=== PATIENT | male | born 1995 | race Hispanic/Latino ===

== ENCOUNTER 2018-04-16 13:24 | Emergency (ER) | payer SELFPAY ==
--- NOTE | 2018-04-16 14:06 | ER ---
Nurse's Notes [facility] Name: Jonathan Calvin Age: 23 yrs Sex: Male : 1995 Arrival Date: 04/16/2018 Time: 13:25 Bed 19 Private MD: Diagnosis: Claudio's palsy Presentation: 04/16 13:40 Presenting complaint: Patient states: 2 nights ago, i felt pain on the back of my neck hj and sharp pain on my L ear, L side of the lip and face is numbed; denies hx of [place] Palsy;. Transition of care: patient was not received from another setting of care. Onset of symptoms was April 14, 2018. Risk Assessment: Do you want to hurt yourself or someone else? Patient reports no desire to harm self or others. Initial Sepsis Screen: Does the patient meet any 2 criteria? No. Patient's initial sepsis screen is negative. Does the patient have a suspected source of infection? No. Patient's initial sepsis screen is negative. 13:40 Method Of Arrival: Ambulatory 13:40 Acuity: GINGER 4 13:44 Care prior to arrival: None. Triage Assessment: 13:43 Headache History: Denies prior headaches. General: Appears in no apparent distress. hj uncomfortable, Behavior is calm, cooperative, appropriate for age. Pain: Complains of pain in head Pain currently is 8 out of 10 on a pain scale. Pain began 2-3 days ago. Also complains of. Neuro: Level of Consciousness is awake, alert, obeys commands, Oriented to person, place, time, situation, Appropriate for age. Historical: - Allergies: 13:43 Sulfa; - Home Meds: 13:43 Claritin Oral [Active]; - PMHx: 13:43 None; - PSHx: 13:43 None; - Immunization history:: Adult Immunizations. - Social history:: Smoking status: Patient/guardian denies using tobacco, Patient/guardian denies using alcohol. - Ebola Screening: : Patient negative for fever greater than or equal to 101.5 degrees Fahrenheit, and additional compatible Ebola Virus Disease symptoms Patient denies exposure to infectious person Patient denies travel to an Ebola-affected area in the 21 days before illness onset. Screenin:44 Abuse screen: Denies threats or abuse. Nutritional screening: No deficits noted. hj Tuberculosis screening: No symptoms or risk factors identified. Fall Risk None identified. Assessment: 14:00 General: Appears in no apparent distress. comfortable, Behavior is calm, cooperative. em Pain: Complains of pain in left jaw and left eye and left cheek. Neuro: Level of Consciousness is awake, alert, obeys commands, Oriented to person, place, time, situation, Moves all extremities. Gait is steady, Speech is normal, Facial droop on left, Tingling in left jaw and left cheek. Cardiovascular: Denies chest pain, Capillary refill < 3 seconds Chest pain is denied. Respiratory: Airway is patent Respiratory effort is even, unlabored, Respiratory pattern is regular, symmetrical. GI: No signs and/or symptoms were reported involving the gastrointestinal system. : No signs and/or symptoms were reported regarding the genitourinary system. EENT: No signs and/or symptoms were reported regarding the EENT system. Derm: Skin is intact, Skin is pink, warm \T\ dry. Musculoskeletal: Range of motion: intact in all extremities. Vital Signs: 13:44 BP 145 / 85; Pulse 80; Resp 18; Temp 98.4(O); Pulse Ox 100% on R/A; Weight 88.45 kg; hj Height 5 ft. 9 in. (175.26 cm); Pain 8/10; 13:44 Body Mass Index 28.80 (88.45 kg, 175.26 cm) ED Course: 13:25 Patient arrived in ED. sb2 13:42 Triage completed. hj 13:44 Arm band placed on right wrist. 13:44 Patient has correct armband on for positive identification. Bed in low position. Call light in reach. Side rails up X 1. 13:47 Josue Zelaya PA is PHCP. [facility] 13:47 Jorge Velazquez MD is Attending Physician. [facility] 14:05 Lee Arellano MD is Referral Physician. [facility] 14:05 Ubaldo Titus MD is Referral Physician. [facility] 14:10 Александр Dueñas LVN is Primary Nurse. em 14:15 No provider procedures requiring assistance completed. Patient did not have IV access em during this emergency room visit. Administered Medications: No medications were administered Outcome: 14:05 Discharge ordered by . m 14:17 Discharged to home ambulatory. em 14:17 Condition: good 14:17 Discharge instructions given to patient, Instructed on discharge instructions, follow up and referral plans. medication usage, Demonstrated understanding of instructions, follow-up care, medications, Prescriptions given X 4. 14:18 Patient left the ED. em Signatures: Josue Zelaya PA PA jmm Munoz, Edgar, REPAIRER FINISHED METAL REPAIRER FINISHED METAL em Grzegorz Casiano, RN RN Marti Gross sb2
--- NOTE | 2018-04-16 14:06 | EDPHYS ---
Physician Documentation [facility] Name: Jonathan Calvin Age: 23 yrs Sex: Male : 1995 Arrival Date: 04/16/2018 Time: 13:25 Bed 19 Private MD: ED Physician Jorge Velazquez HPI: 04/16 13:58 This 23 yrs old Male presents to ER via Ambulatory with complaints of jmm Headache, Numbness Of Face - L. 13:58 The patient complains of pain to the left ear, left cheek, left eye and left jaw. The jmm patient describes the headache as aching. Onset: The symptoms/episode began/occurred gradually, 2 day(s) ago. This is a 23 year old male with no chronic medical conditions that presents to the ED with left sided facial pain and weakness. Patient also complains of ear pain. Patient denies difficulty walking.. Historical: - Allergies: 13:43 Sulfa; hj - Home Meds: 13:43 Claritin Oral [Active]; hj - PMHx: 13:43 None; hj - PSHx: 13:43 None; hj - Immunization history:: Adult Immunizations. - Social history:: Smoking status: Patient/guardian denies using tobacco, Patient/guardian denies using alcohol. - Ebola Screening: : Patient negative for fever greater than or equal to 101.5 degrees Fahrenheit, and additional compatible Ebola Virus Disease symptoms Patient denies exposure to infectious person Patient denies travel to an Ebola-affected area in the 21 days before illness onset. ROS: 13:58 Constitutional: Negative for fever, chills, and weight loss, Eyes: Negative for injury, jmm pain, redness, and discharge, Cardiovascular: Negative for chest pain, palpitations, and edema, Respiratory: Negative for shortness of breath, cough, wheezing, and pleuritic chest pain. 13:58 ENT: Positive for ear pain. 13:58 Neuro: Positive for facial droop. 13:58 All other systems are negative. Exam: 13:58 Chest/axilla: Normal chest wall appearance and motion. Cardiovascular: Regular rate jmm and rhythm. No edema appreciated Respiratory: Normal respirations, no respiratory distress appreciated Abdomen/GI: Non distended, soft 13:58 Constitutional: The patient appears in no acute distress, alert, awake. 13:58 Head/face: 13:58 Head/face: facial droop noted. 13:58 Eyes: Extraocular movements: intact throughout, Conjunctiva: normal. 13:58 ENT: TM's: are normal. 13:58 Neuro: Orientation: is normal, Mentation: is normal, Memory: is normal, Cerebellar function: normal finger to nose testing, heel to skinner testing is normal, left sided facial droop with eyebrow involvement appreciated. 13:58 Psych: Behavior/mood is pleasant, cooperative. Vital Signs: 13:44 BP 145 / 85; Pulse 80; Resp 18; Temp 98.4(O); Pulse Ox 100% on R/A; Weight 88.45 kg; hj Height 5 ft. 9 in. (175.26 cm); Pain 8/10; 13:44 Body Mass Index 28.80 (88.45 kg, 175.26 cm) hj MDM: 13:58 Patient medically screened. [facility] 14:03 Data reviewed: vital signs, nurses notes. Counseling: I had a detailed discussion with eduar the patient and/or guardian regarding: the historical points, exam findings, and any diagnostic results supporting the discharge/admit diagnosis, the presence of at least one elevated blood pressure reading (>120/80) during this emergency department visit, the need for outpatient follow up, to return to the emergency department if symptoms worsen or persist or if there are any questions or concerns that arise at home. ED course: Dr. Velazquez at bedside. PE findings consistent with bells palsy. I do not currently suspect cva. Patient will be given a course of antivirals, steroids. Patient will be given opthalmology and neurology follow up . . Administered Medications: No medications were administered Disposition: 17:33 Co-signature as Attending Physician, Jorge Velazquez MD Available for consultation at ps1 all times. . Disposition: 04/16/18 14:05 Discharged to Home. Impression: Claudio's palsy. - Condition is Stable. - Discharge Instructions: Claudio Palsy, Adult. - Prescriptions for Prednisone 20 mg Oral Tablet - take 3 tablets by ORAL route once daily for 5 days Please take 3 tabs by mouth daily for 3 days, then 2 tabs by mouth daily for 3 days, then 1 tab by mouth daily for 3 days, then 1/2 tab by mouth daily for 3 days; 20 tablet. Acyclovir 800 mg Oral Tablet - take 1 tablet by ORAL route 5 times per day for 10 days; 50 tablet. Erythromycin 5 mg/gram (0.5 %) Ophthalmic Ointment - apply 1 centimeter by OPHTHALMIC route 2-3 times daily for 7 days; 1 tube. Ultram 50 mg Oral Tablet - take 1 tablet by ORAL route every 6 hours As needed; 20 tablet. - Medication Reconciliation Form, Thank You Letter, Antibiotic Education, Prescription Opioid Use form. - Follow up: Lee Arellano MD; When: 2 - 3 days; Reason: Recheck today's complaints, Continuance of care, Re-evaluation by your physician. Follow up: Ubaldo Titus MD; When: 2 - 3 days; Reason: Recheck today's complaints, Continuance of care, Re-evaluation by your physician. Signatures: Josue Zelaya PA PA jmm Munoz, Edgar, FUNERAL CAR DRIVER FUNERAL CAR DRIVER Grzegorz Lyles RN RN Jorge Peres MD MD ps1 Corrections: (The following items were deleted from the chart) 14:18 14:05 04/16/2018 14:05 Discharged to Home. Impression: Claudio's palsy. Condition is em Stable. Forms are Medication Reconciliation Form, Thank You Letter, Antibiotic Education, Prescription Opioid Use. Follow up: Lee Arellano; When: 2 - 3 days; Reason: Recheck today's complaints, Continuance of care, Re-evaluation by your physician. Follow up: Ubaldo Titus; When: 2 - 3 days; Reason: Recheck today's complaints, Continuance of care, Re-evaluation by your physician. eduar
== END 2018-04-16 14:18 | disposition home or self-care (01) ==
LOC: ER 13:24
DX: G51.0 Bell's palsy (principal); Z88.2 Allergy status to sulfonamides
CPT/HCPCS: 99282

== ENCOUNTER 2019-03-14 09:06 | Emergency (ER) | payer SELFPAY ==
--- NOTE | 2019-03-14 11:10 | ER ---
Nurse's Notes [facility] Name: Jonathan Calvin Age: 24 yrs Sex: Male : 1995 Arrival Date: 03/14/2019 Time: 09:08 Bed 10 Private MD: Diagnosis: Fall;Left hip pain;Paraspinal spasm;Abrasion Presentation: 03/14 09:23 Presenting complaint: Patient states: "I was rushing down some stairs yesterday and I aa5 fell on my left side". Pt states "the left side hurts from my waist down". Pt denies LOC, denies head injury. Pt reports falling from approximately 4 steps. Transition of care: patient was not received from another setting of care. Onset of symptoms was March 13, 2019. Risk Assessment: Do you want to hurt yourself or someone else? Patient reports no desire to harm self or others. Initial Sepsis Screen: Does the patient meet any 2 criteria? No. Patient's initial sepsis screen is negative. Does the patient have a suspected source of infection? No. Patient's initial sepsis screen is negative. Care prior to arrival: None. 09:23 Method Of Arrival: Ambulatory aa5 09:23 Acuity: GINGER 4 aa5 Historical: - Allergies: 09:23 Sulfa; aa5 - PMHx: 09:23 None; aa5 - PSHx: 09:23 None; aa5 - Immunization history:: Adult Immunizations up to date. - Ebola Screening: : No symptoms or risks identified at this time. - Social history:: Smoking status: Patient/guardian denies using tobacco. Screenin:30 Abuse screen: Denies threats or abuse. Nutritional screening: No deficits noted. aa5 Tuberculosis screening: No symptoms or risk factors identified. Fall Risk None identified. Assessment: 09:30 General: Appears comfortable, Behavior is calm, cooperative. Pain: Complains of pain in aa5 left low back, left hip, left knee, left leg, and left ankle Quality of pain is described as aching, Is continuous, Aggravated by increased activity. Neuro: Level of Consciousness is awake, alert, obeys commands, Oriented to person, place, time, situation, Gait is steady. Cardiovascular: Capillary refill < 3 seconds is brisk in bilateral fingers Patient's skin is warm and dry. Respiratory: Airway is patent Respiratory effort is even, unlabored, Respiratory pattern is regular, symmetrical. GI: No signs and/or symptoms were reported involving the gastrointestinal system. : No signs and/or symptoms were reported regarding the genitourinary system. EENT: No signs and/or symptoms were reported regarding the EENT system. Derm: Skin is pink, warm \\T\\ dry. Musculoskeletal: Range of motion: intact in all extremities. 10:45 Reassessment: Patient is alert, oriented x 3, equal unlabored respirations, skin aa5 warm/dry/pink. Urine specimen collected, urine is yellow and clear. . 11:25 Reassessment: Patient is alert, oriented x 3, equal unlabored respirations, skin aa5 warm/dry/pink. Vital Signs: 09:25 BP 148 / 78; Pulse 66; Resp 16 S; Temp 98.6(TE); Pulse Ox 100% on R/A; Weight 88.45 kg aa5 (R); Height 5 ft. 9 in. (175.26 cm) (R); Pain 8/10; 09:25 Body Mass Index 28.80 (88.45 kg, 175.26 cm) aa5 ED Course: 09:08 Patient arrived in ED. rg4 09:12 Jorge Velazquez MD is Attending Physician. ps1 09:23 Arm band placed on. aa5 09:23 Patient has correct armband on for positive identification. aa5 09:25 Triage completed. aa5 09:26 Ann Marie Brambila RN is Primary Nurse. aa5 11:25 No provider procedures requiring assistance completed. Patient did not have IV access aa5 during this emergency room visit. Administered Medications: No medications were administered Outcome: 11:09 Discharge ordered by . ps1 11:25 Discharged to home ambulatory. aa5 11:25 Condition: stable 11:25 Discharge instructions given to patient, Instructed on discharge instructions, follow up and referral plans. medication usage, Demonstrated understanding of instructions, follow-up care, medications, Prescriptions given X 3. 11:27 Patient left the ED. aa5 Signatures: Ann Marie Brambila RN RN [email or web address] Marily Ko rg4 Jorge Velazquez MD MD ps1 Corrections: (The following items were deleted from the chart) 10:59 09:30 Neuro: Level of Consciousness is awake, alert, obeys commands, Oriented to aa5 person, place, time, situation, aa5
--- NOTE | 2019-03-14 11:10 | EDPHYS ---
Physician Documentation [facility] Name: Jonathan Calvin Age: 24 yrs Sex: Male : 1995 Arrival Date: 03/14/2019 Time: 09:08 Bed 10 Private MD: ED Physician Jorge Velazquez HPI: 03/14 10:49 This 24 yrs old Male presents to ER via Ambulatory with complaints of Fall ps1 Injury. 10:49 patient states that he fell from standing height while going down stairs. Did not fall ps1 down stairs. C/o pain to left hip. No obvious injury, has spasm to left paraspinal area. Patient is ambulatory. No hematuria. Took tylenol which helped. . Historical: - Allergies: 09:23 Sulfa; aa5 - PMHx: :23 None; aa5 - PSHx: :23 None; aa5 - Immunization history:: Adult Immunizations up to date. - Ebola Screening: : No symptoms or risks identified at this time. - Social history:: Smoking status: Patient/guardian denies using tobacco. ROS: 11:03 Constitutional: Negative for fever, chills, and weight loss, Eyes: Negative for injury, ps1 pain, redness, and discharge, Cardiovascular: Negative for chest pain, palpitations, and edema, Respiratory: Negative for shortness of breath, cough, wheezing, and pleuritic chest pain, Abdomen/GI: Negative for abdominal pain, nausea, vomiting, diarrhea, and constipation. 11:03 Back: Positive for flank pain, on the left. 11:03 Skin: Positive for abrasion(s), of the left leg. Exam: 11:03 Constitutional: This is a well developed, well nourished patient who is awake, alert, ps1 and in no acute distress. Head/Face: Normocephalic, atraumatic. Chest/axilla: Normal chest wall appearance and motion. Nontender with no deformity. No lesions are appreciated. Cardiovascular: Regular rate and rhythm. No gallops, murmurs, or rubs. Normal PMI, no JVD. No pulse deficits. Respiratory: Lungs have equal breath sounds bilaterally, clear to auscultation and percussion. No rales, rhonchi or wheezes noted. No increased work of breathing, no retractions or nasal flaring. Abdomen/GI: Soft, non-tender, with normal bowel sounds. No distension or tympany. No guarding or rebound. No evidence of tenderness throughout. MS/ Extremity: Pulses equal, no cyanosis. Neurovascular intact. Full, normal range of motion. Neuro: Awake and alert, GCS 15, oriented to person, place, time, and situation. Cranial nerves II-XII grossly intact. Sensory grossly intact. Psych: Awake, alert, with orientation to person, place and time. Behavior, mood, and affect are within normal limits. 11:03 Back: pain, that is mild, of the left low back. Vital Signs: 09:25 BP 148 / 78; Pulse 66; Resp 16 S; Temp 98.6(TE); Pulse Ox 100% on R/A; Weight 88.45 kg aa5 (R); Height 5 ft. 9 in. (175.26 cm) (R); Pain 8/10; 09:25 Body Mass Index 28.80 (88.45 kg, 175.26 cm) aa5 MDM: 10:44 Patient medically screened. ps1 11:03 Data reviewed: vital signs, nurses notes, lab test result(s), and as a result, I will ps1 discharge patient. ED course: patient is ambulatory. Has FROM. Mild paraspinal spasm. No hematuria 2/2 renal injury. Home with anaprox, medrol, robaxin. Precautions given. . 03/14 10:51 Order name: Urine Dipstick--Ancillary (enter results) ss 03/14 10:41 Order name: Urine Dipstick-Ancillary (obtain specimen); Complete Time: 10:49 ps1 Administered Medications: No medications were administered Disposition: 03/14/19 11:09 Discharged to Home. Impression: Fall, Left hip pain, Paraspinal spasm, Abrasion. - Condition is Stable. - Discharge Instructions: Muscle Cramps and Spasms. - Prescriptions for Anaprox DS 550 mg Oral Tablet - take 1 tablet by ORAL route every 12 hours As needed; 20 tablet. Robaxin 500 mg Oral Tablet - take 2 tablet by ORAL route every 6 hours As needed; 40 tablet. Medrol (Ashu) 4 mg Oral Tablets, Dose Pack - take 1 tablet by ORAL route as directed - follow package instructions; 1 packet. - Work release form, Medication Reconciliation Form, Thank You Letter, Antibiotic Education, Prescription Opioid Use form. - Follow up: Emergency Department; When: As needed; Reason: Worsening of condition. Follow up: Private Physician; When: As needed; Reason: Further diagnostic work-up, Recheck today's complaints, Continuance of care, Re-evaluation by your physician. - Problem is new. - Symptoms have improved. Signatures: Dispatcher [employer] EDAnn Marie Chambers RN RN aa5 Jorge Velazquez MD MD ps1 Corrections: (The following items were deleted from the chart) 10:55 10:49 patient states that he . ps1 ps1 11:05 10:49 patient states that he . ps1 ps1 11:27 11:09 03/14/2019 11:09 Discharged to Home. Impression: Fall; Left hip pain; Paraspinal aa5 spasm; Abrasion. Condition is Stable. Forms are Medication Reconciliation Form, Thank You Letter, Antibiotic Education, Prescription Opioid Use. Follow up: Emergency Department; When: As needed; Reason: Worsening of condition. Follow up: Private Physician; When: As needed; Reason: Further diagnostic work-up, Recheck today's complaints, Continuance of care, Re-evaluation by your physician. Problem is new. Symptoms have improved. ps1
[2019-03-14 11:49] LABS: Urine Blood NEGATIVE (NEG); Urine Glucose NEGATIVE (NEG); Urine Protein NEGATIVE (NEG); Urine Specific Gravity 1.015 (1.005-1.030); Urine pH 7.5 (5.0-7.0)
== END 2019-03-14 11:27 | disposition home or self-care (01) ==
LOC: ER 09:06
DX: M25.552 Pain in left hip (principal); M62.830 Muscle spasm of back; S80.812A Abrasion, left lower leg, initial encounter; W10.9XXA Fall (on) (from) unspecified stairs and steps, initial encounter; Z88.2 Allergy status to sulfonamides
CPT/HCPCS: 81003; 99282

== ENCOUNTER 2019-03-16 11:27 | Emergency (ER) | payer SELFPAY ==
--- NOTE | 2019-03-16 12:41 | RAD REPORT ---
EXAM DESCRIPTION: RAD - Pelvis - 03/16/2019 12:35 pm CLINICAL HISTORY: left hip pain, fall COMPARISON: No comparisons FINDINGS: No fracture, dislocation or radiographic evidence of AVN. IMPRESSION: Negative study.
--- NOTE | 2019-03-16 12:48 | RAD REPORT ---
EXAM DESCRIPTION: RAD - Lumbar Spine 3 Views - 03/16/2019 12:35 pm CLINICAL HISTORY: low back pain, fall Radiculopathy COMPARISON: No comparisons FINDINGS: Vertebral body heights appear maintained. No compression fracture noted. Disc spaces are m aintained. No spondylolysis or spondylolisthesis. IMPRESSION: Negative study.
--- NOTE | 2019-03-16 13:07 | ER ---
Nurse's Notes [facility] Name: Jonathan Calvin Age: 24 yrs Sex: Male : 1995 Arrival Date: 03/16/2019 Time: 11:30 Bed X-Ray Private MD: Diagnosis: Strain of muscle, fascia and tendon of lower back Presentation: 03/16 11:39 Presenting complaint: Patient states: Thursday i fell down and hit my L lower back and my hj L lower leg, came here for eval but no xray done, now the pain is pretty bad; pain is 8/10;. Transition of care: patient was not received from another setting of care. Onset of symptoms was March 16, 2019. Risk Assessment: Do you want to hurt yourself or someone else? Patient reports no desire to harm self or others. Initial Sepsis Screen: Does the patient meet any 2 criteria? No. Patient's initial sepsis screen is negative. Does the patient have a suspected source of infection? No. Patient's initial sepsis screen is negative. Care prior to arrival: None. 11:39 Method Of Arrival: Ambulatory 11:39 Acuity: GINGER 4 hj Triage Assessment: 11:39 General: Appears in no apparent distress. uncomfortable, Behavior is calm, cooperative, hj appropriate for age. Pain: Complains of pain in low back area. Musculoskeletal: Circulation, motion, and sensation intact. Historical: - Allergies: 11:41 Sulfa; hj - Home Meds: 11:41 Claritin Oral [Active]; hj - PMHx: 11:41 None; hj - PSHx: 11:41 None; hj - Immunization history:: Adult Immunizations up to date. - Social history:: Smoking status: Patient/guardian denies using tobacco, Patient/guardian denies using alcohol. - Ebola Screening: : Patient negative for fever greater than or equal to 101.5 degrees Fahrenheit, and additional compatible Ebola Virus Disease symptoms Patient denies exposure to infectious person Patient denies travel to an Ebola-affected area in the 21 days before illness onset. Screenin:39 Abuse screen: Denies threats or abuse. Denies injuries from another. Nutritional hj screening: No deficits noted. Tuberculosis screening: No symptoms or risk factors identified. Fall Risk None identified. Assessment: 11:39 General: Appears in no apparent distress. uncomfortable, Behavior is calm, cooperative, hj appropriate for age. Neuro: Level of Consciousness is awake, alert, obeys commands, Oriented to person, place, time, situation, Appropriate for age. Musculoskeletal: Reports pain in low back area. Vital Signs: 11:41 BP 155 / 81; Pulse 79; Resp 18; Temp 97.4(TE); Pulse Ox 100% on R/A; Weight 95.25 kg; hj Height 5 ft. 9 in. (175.26 cm); Pain 8/10; 13:18 BP 152 / 78; Pulse 75; Resp 18; Pulse Ox 100% on R/A; hj 11:41 Body Mass Index 31.01 (95.25 kg, 175.26 cm) hj ED Course: 11:30 Patient arrived in ED. mr 11:39 Patient has correct armband on for positive identification. Bed in low position. Call hj light in reach. 11:40 Triage completed. hj 11:42 Arm band placed on left wrist. 11:44 Josue Zealya PA is PHCP. [facility] 11:44 Ed Carney MD is Attending Physician. [facility] 11:57 Grzegorz Casiano, FER is Primary Nurse. hj 12:35 Lumbar Spine (3 Views) XRAY In Process Unspecified. EDMS 12:35 Pelvis XRAY In Process Unspecified. EDMS 13:18 No provider procedures requiring assistance completed. Patient did not have IV access hj during this emergency room visit. Administered Medications: No medications were administered Outcome: 13:07 Discharge ordered by . [facility] 13:18 Discharged to home ambulatory. hj 13:18 Condition: stable 13:18 Discharge instructions given to patient, Instructed on discharge instructions, follow up and referral plans. medication usage, Demonstrated understanding of instructions, follow-up care, medications, Prescriptions given X 1. 13:18 Patient left the ED. Signatures: Dispatcher [employer] EDMS Josue Zelaya PA PA jmm Rivera, Mary Grzegorz Casiano, RN RN
--- NOTE | 2019-03-16 13:08 | EDPHYS ---
Physician Documentation [facility] Name: Jonathan Calvin Age: 24 yrs Sex: Male : 1995 Arrival Date: 03/16/2019 Time: 11:30 Bed X-Ray Private MD: ED Physician Ed Carney HPI: 03/16 12:06 This 24 yrs old Male presents to ER via Ambulatory with complaints of Back jmm Pain. 12:06 The patient presents with pain that is acute. Onset: The symptoms/episode jmm began/occurred acutely, 3 day(s) ago. The pain does not radiate. Associated signs and symptoms: Pertinent negatives: fever, vomiting, weakness. This is a 24 year old male with no chronic medical conditions that presents to the ED with complaints of left sided back pain and ledt sided hip pain after a fall which occurred Thursday evening. Patient states she fell down the stairs. Denies head injury. Patient was evaluated in the ED after the injury. Patient states having continued pain and is unable to work due to pain. Patient denies weakness, bowel or bladder issues. . Historical: - Allergies: 11:41 Sulfa; hj - Home Meds: 11:41 Claritin Oral [Active]; hj - PMHx: 11:41 None; hj - PSHx: 11:41 None; hj - Immunization history:: Adult Immunizations up to date. - Social history:: Smoking status: Patient/guardian denies using tobacco, Patient/guardian denies using alcohol. - Ebola Screening: : Patient negative for fever greater than or equal to 101.5 degrees Fahrenheit, and additional compatible Ebola Virus Disease symptoms Patient denies exposure to infectious person Patient denies travel to an Ebola-affected area in the 21 days before illness onset. ROS: 12:06 Constitutional: Negative for fever, chills, and weight loss, Cardiovascular: Negative jmm for chest pain, palpitations, and edema, Respiratory: Negative for shortness of breath, cough, wheezing, and pleuritic chest pain. 12:06 Back: Positive for pain with movement. 12:06 MS/extremity: Positive for pain. 12:06 All other systems are negative. Exam: 12:06 Constitutional: This is a well developed, well nourished patient who is awake, alert, jmm and in no acute distress. Head/Face: atraumatic. Eyes: EOMI, no conjunctival erythema appreciated ENT: Moist Mucus Membranes Neck: Trachea midline, Supple Chest/axilla: Normal chest wall appearance and motion. Cardiovascular: Regular rate and rhythm. No edema appreciated Respiratory: Normal respirations, no respiratory distress appreciated Abdomen/GI: Non distended, soft 12:06 Back: mild midline lumbar tenderness, left paraspinal tenderness. 12:06 Musculoskeletal/extremity: ROM: intact in all extremities. 12:06 Skin: Appearance: Color: normal in color. 12:06 Neuro: Orientation: is normal, Mentation: is normal, Memory: is normal. 12:06 Neuro: Gait: is steady. 12:06 Psych: Behavior/mood is pleasant, cooperative. Vital Signs: 11:41 BP 155 / 81; Pulse 79; Resp 18; Temp 97.4(TE); Pulse Ox 100% on R/A; Weight 95.25 kg; hj Height 5 ft. 9 in. (175.26 cm); Pain 8/10; 13:18 BP 152 / 78; Pulse 75; Resp 18; Pulse Ox 100% on R/A; hj 11:41 Body Mass Index 31.01 (95.25 kg, 175.26 cm) MDM: 12:06 Patient medically screened. [facility] 13:06 Data reviewed: vital signs, nurses notes. Counseling: I had a detailed discussion with eduar the patient and/or guardian regarding: the historical points, exam findings, and any diagnostic results supporting the discharge/admit diagnosis, radiology results, the need for outpatient follow up, to return to the emergency department if symptoms worsen or persist or if there are any questions or concerns that arise at home. 03/16 12:12 Order name: Lumbar Spine (3 Views) XRAY; Complete Time: 12:52 [facility] 03/16 12:12 Order name: Pelvis XRAY; Complete Time: 12:45 [facility] Administered Medications: No medications were administered Disposition: 03/17 07:23 Co-signature as Attending Physician, Ed Carney MD I agree with the assessment and kdr plan of care. Disposition: 03/16/19 13:07 Discharged to Home. Impression: Strain of muscle, fascia and tendon of lower back. - Condition is Stable. - Discharge Instructions: Back Pain, Adult. - Prescriptions for Zanaflex 4 mg Oral Tablet - take 1 tablet by ORAL route every 8 hours As needed; 20 tablet. - Medication Reconciliation Form, Thank You Letter, Antibiotic Education, Prescription Opioid Use, Work release form form. - Follow up: Private Physician; When: 2 - 3 days; Reason: Recheck today's complaints, Continuance of care, Re-evaluation by your physician. Signatures: Dispatcher [employer] EDMS Ed Carney MD MD kdr Mickail, Joel, PA PA jmm Joaquin, Henry, RN RN hj Corrections: (The following items were deleted from the chart) 03/16 13:18 13:07 03/16/2019 13:07 Discharged to Home. Impression: Strain of muscle, fascia and hj tendon of lower back. Condition is Stable. Forms are Medication Reconciliation Form, Thank You Letter, Antibiotic Education, Prescription Opioid Use. Follow up: Private Physician; When: 2 - 3 days; Reason: Recheck today's complaints, Continuance of care, Re-evaluation by your physician. eduar
== END 2019-03-16 13:18 | disposition home or self-care (01) ==
LOC: ER 11:27
DX: S39.012A Strain of muscle, fascia and tendon of lower back, initial encounter (principal); Z88.2 Allergy status to sulfonamides
CPT/HCPCS: 72100; 72170; 99283

== ENCOUNTER 2019-10-26 08:01 | Emergency (ER) | payer SELFPAY ==
--- NOTE | 2019-10-26 09:11 | ER ---
Nurse's Notes [facility] Name: Jonathan Calvin Age: 24 yrs Sex: Male : 1995 Arrival Date: 10/26/2019 Time: 08:04 Bed 20 Private MD: Diagnosis: Acute pharyngitis Presentation: 10/26 08:15 Presenting complaint: Patient states: Sore throat x 3 days, fever this morning 102, jl7 took Tylenol at 0515. Transition of care: patient was not received from another setting of care. Onset of symptoms was October 23, 2019. Risk Assessment: Do you want to hurt yourself or someone else? Patient reports no desire to harm self or others. Initial Sepsis Screen: Does the patient meet any 2 criteria? No. Patient's initial sepsis screen is negative. Does the patient have a suspected source of infection? No. Patient's initial sepsis screen is negative. Care prior to arrival: Medication(s) given: Tylenol. 08:15 Method Of Arrival: Ambulatory [facility] 08:15 Acuity: GINGER 4 jl7 Triage Assessment: 08:18 General: Appears in no apparent distress. uncomfortable, Behavior is calm, cooperative, jl7 appropriate for age. Pain: Complains of pain in sore throat, ZHANG Pain currently is 9 out of 10 on a pain scale. EENT: Throat is pink has enlarged tonsils bilaterally. Neuro: Level of Consciousness is awake, alert, obeys commands, Oriented to person, place, time, situation. Cardiovascular: Patient's skin is warm and dry. Respiratory: Airway is patent Respiratory effort is even, unlabored, Respiratory pattern is regular, symmetrical. Derm: Skin is pink, warm \T\ dry. Historical: - Allergies: 08:18 Sulfa; jl7 - Home Meds: 08:18 None [Active]; jl7 - PMHx: 08:18 None; jl7 - PSHx: 08:18 None; jl7 - Immunization history:: Adult Immunizations up to date. - Coronavirus screen:: The patient has NOT traveled to [place] in the past 14 days. Proceed with normal triage process as indicated. - Social history:: Smoking status: Patient denies any tobacco usage or history of. - Ebola Screening: : No symptoms or risks identified at this time. Screenin:38 Abuse screen: Denies threats or abuse. Denies injuries from another. Nutritional jl7 screening: No deficits noted. Tuberculosis screening: No symptoms or risk factors identified. Fall Risk None identified. Assessment: 08:20 General: See triage assessment. jl7 Vital Signs: 08:18 BP 142 / 93; Pulse 77; Resp 17 S; Temp 97.9(O); Pulse Ox 97% on R/A; Weight 94.35 kg jl7 (R); Height 5 ft. 9 in. (175.26 cm) (R); Pain 9/10; 08:18 Body Mass Index 30.72 (94.35 kg, 175.26 cm) jl7 ED Course: 08:04 Patient arrived in ED. mr 08:06 [facility]ales [facility]C [facility] kb 08:06 Leodan Reyes MD is Attending Physician. kb 08:15 Balta Ferrara, FER is Primary Nurse. jl7 08:18 Triage completed. jl7 08:18 Arm band placed on right wrist. jl7 08:20 No provider procedures requiring assistance completed. Patient did not have IV access jl7 during this emergency room visit. 08:38 Patient has correct armband on for positive identification. Bed in low position. Call jl7 light in reach. Side rails up X 1. Pulse ox on. NIBP on. 08:38 Flu and/or RSV swab sent to lab. Strep swab sent to lab. jl7 Administered Medications: No medications were administered Outcome: 09:10 Discharge ordered by . kb 09:22 Discharged to home ambulatory. jl7 09:22 Condition: stable 09:22 Discharge instructions given to patient, Instructed on discharge instructions, follow up and referral plans. Demonstrated understanding of instructions, follow-up care. 09:23 Patient left the ED. jl7 Signatures: Anamaria Canales FNP-C FNP-Douglas Luly Calvert mr Balta Ferrara, RN RN jl7
--- NOTE | 2019-10-26 09:12 | EDPHYS ---
Physician Documentation [facility] Name: Jonathan Calvin Age: 24 yrs Sex: Male : 1995 Arrival Date: 10/26/2019 Time: 08:04 Bed 20 Private MD: ED Physician Leodan Reyes HPI: 10/26 08:54 This 24 yrs old Male presents to ER via Ambulatory with complaints of Fever, kb Sore Throat. 08:54 The patient presents with sore throat. The patient describes throat pain as constant. kb Onset: The symptoms/episode began/occurred 3 day(s) ago. Severity of symptoms: At their worst the symptoms were moderate, in the emergency department the symptoms are unchanged. Modifying factors: The symptoms are alleviated by nothing, the symptoms are aggravated by swallowing, Patient's oral intake status: good. Associated signs and symptoms: Pertinent positives: fever, rhinorrhea, Sore throat. The patient has not experienced similar symptoms in the past. The patient has not recently seen a physician. Pt reports sore throat for 3 days and fever that started this morning. Historical: - Allergies: 08:18 Sulfa; jl7 - Home Meds: 08:18 None [Active]; jl7 - PMHx: 08:18 None; jl7 - PSHx: 08:18 None; jl7 - Immunization history:: Adult Immunizations up to date. - Coronavirus screen:: The patient has NOT traveled to [place] in the past 14 days. Proceed with normal triage process as indicated. - Social history:: Smoking status: Patient denies any tobacco usage or history of. - Ebola Screening: : No symptoms or risks identified at this time. ROS: 08:53 Neck: Negative for injury, pain, and swelling, Cardiovascular: Negative for chest pain, kb palpitations, and edema, Respiratory: Negative for shortness of breath, cough, wheezing, and pleuritic chest pain, Abdomen/GI: Negative for abdominal pain, nausea, vomiting, diarrhea, and constipation, MS/Extremity: Negative for injury and deformity, Skin: Negative for injury, rash, and discoloration, Neuro: Negative for headache, weakness, numbness, tingling, and seizure. 08:53 Constitutional: Positive for fever, malaise. 08:53 ENT: Positive for rhinorrhea, sore throat. Exam: 08:53 Constitutional: This is a well developed, well nourished patient who is awake, alert, kb and in no acute distress. Head/Face: Normocephalic, atraumatic. ENT: Nares patent. No nasal discharge, no septal abnormalities noted. Tympanic membranes are normal and external auditory canals are clear. Oropharynx with no redness, swelling, or masses, exudates, or evidence of obstruction, uvula midline. Mucous membranes moist. Neck: Trachea midline, no thyromegaly or masses palpated, and no cervical lymphadenopathy. Supple, full range of motion without nuchal rigidity, or vertebral point tenderness. No Meningismus. Chest/axilla: Normal chest wall appearance and motion. Nontender with no deformity. No lesions are appreciated. Cardiovascular: Regular rate and rhythm with a normal S1 and S2. No gallops, murmurs, or rubs. Normal PMI, no JVD. No pulse deficits. Respiratory: Lungs have equal breath sounds bilaterally, clear to auscultation and percussion. No rales, rhonchi or wheezes noted. No increased work of breathing, no retractions or nasal flaring. Abdomen/GI: Soft, non-tender, with normal bowel sounds. No distension or tympany. No guarding or rebound. No evidence of tenderness throughout. Back: No spinal tenderness. No costovertebral tenderness. Full range of motion. Skin: Warm, dry with normal turgor. Normal color with no rashes, no lesions, and no evidence of cellulitis. MS/ Extremity: Pulses equal, no cyanosis. Neurovascular intact. Full, normal range of motion. Neuro: Awake and alert, GCS 15, oriented to person, place, time, and situation. Cranial nerves II-XII grossly intact. Motor strength 5/5 in all extremities. Sensory grossly intact. Cerebellar exam normal. Normal gait. Vital Signs: 08:18 BP 142 / 93; Pulse 77; Resp 17 S; Temp 97.9(O); Pulse Ox 97% on R/A; Weight 94.35 kg 7 (R); Height 5 ft. 9 in. (175.26 cm) (R); Pain 9/10; 08:18 Body Mass Index 30.72 (94.35 kg, 175.26 cm) 7 MDM: 08:08 Patient medically screened. kb 08:53 Differential diagnosis: flu pharyngitis, upper respiratory infection, viral syndrome. kb Data reviewed: vital signs, nurses notes, lab test result(s). Data interpreted: Pulse oximetry: on room air is 97 %. Interpretation: normal. Counseling: I had a detailed discussion with the patient and/or guardian regarding: the historical points, exam findings, and any diagnostic results supporting the discharge/admit diagnosis, lab results, the need for outpatient follow up, a family practitioner, to return to the emergency department if symptoms worsen or persist or if there are any questions or concerns that arise at home. 10/26 08:19 Order name: Flu; Complete Time: 09:06 kb 10/26 08:19 Order name: Strep kb 10/26 08:56 Order name: Group A Streptococcus Rapid Sc EDMS 10/26 09:18 Order name: Throat Culture EDMS Administered Medications: No medications were administered Disposition: 09:27 Co-signature as Attending Physician, Leodan Reyes MD. rn Disposition: 10/26/19 09:10 Discharged to Home. Impression: Acute pharyngitis. - Condition is Stable. - Discharge Instructions: Pharyngitis, [id number], Viral Respiratory Infection, [id number], Sore Throat, [id number]. - Medication Reconciliation Form, Thank You Letter, Antibiotic Education, Prescription Opioid Use, Work release form form. - Follow up: Emergency Department; When: As needed; Reason: Worsening of condition. Follow up: Private Physician; When: 2 - 3 days; Reason: Recheck today's complaints, Continuance of care, Re-evaluation by your physician. Signatures: Dispatcher [employer] EDNY Anamaria Canales, OFFICE PROFESSIONAL-C OFFICE PROFESSIONAL-Ckb Leodan Reyes MD MD rn Leal, Jahala, RN RN jl7 Corrections: (The following items were deleted from the chart) 09:23 09:10 10/26/2019 09:10 Discharged to Home. Impression: Acute pharyngitis. Condition is jl7 Stable. Forms are Medication Reconciliation Form, Thank You Letter, Antibiotic Education, Prescription Opioid Use. Follow up: Emergency Department; When: As needed; Reason: Worsening of condition. Follow up: Private Physician; When: 2 - 3 days; Reason: Recheck today's complaints, Continuance of care, Re-evaluation by your physician. kb
[2019-10-26 10:34] VITALS: BP 142/93; TEMP 97.9; O2SAT 97
== END 2019-10-26 09:23 | disposition home or self-care (01) ==
LOC: ER 08:01
DX: J02.9 Acute pharyngitis, unspecified (principal); Z88.2 Allergy status to sulfonamides
CPT/HCPCS: 87070; 87081; 87804; 99283

== ENCOUNTER 2021-02-18 00:40 | Emergency (ER) | payer SELFPAY ==
[2021-02-18 01:51] LABS: Protime INR 0.96
[2021-02-18 01:53] LABS: Absolute Lymphocytes (CBC) 3.3 K/uL (0.7-4.9); Basophils % 0.4 % (0-1.3); Hematocrit 43.1 % (39.6-49.0); Lymphocytes % 34.2 % (15.3-44.8); MPV 7.6 fL (7.6-11.3)
[2021-02-18 02:06] LABS: ALT/SGPT 52 U/L (12-78); AST/SGOT 28 U/L (15-37); Albumin 3.8 g/dL (3.4-5.0); Alkaline Phosphatase 94 U/L (45-117); BUN Blood Urea Nitrogen 12 mg/dL (7-18); Bicarbonate 28 mmol/L (21-32); Bilirubin Direct 0.1 mg/dL (0-0.2); Bilirubin Total 0.5 mg/dL (0.2-1.0); Glucose Level 90 mg/dL (74-106); Magnesium 2.3 mg/dL (1.8-2.4); NT PRO-BNP 43 pg/mL (<125); Potassium 3.7 mmol/L (3.5-5.1); Sodium Level 141 mmol/L (136-145); Troponin (Emerg Dept Use Only) < 0.02 ng/mL (0.0-0.045)
--- NOTE | 2021-02-18 02:10 | ER ---
Nurse's Notes [facility] Name: Jonathan Calvin Age: 25 yrs Sex: Male : 1995 Arrival Date: 02/18/2021 Time: 00:42 Bed 6 Private MD: Diagnosis: Anxiety disorder, unspecified Presentation: 02/18 01:20 Chief complaint: Patient states: I am thinking of something then I started to have left rr5 sided chest pain 35 minutes ago with light handedness and dizziness. Coronavirus screen: Client denies travel out of the [place] in the last 14 days. At this time, the client does not indicate any symptoms associated with coronavirus-19. Ebola Screen: Patient negative for fever greater than or equal to 101.5 degrees Fahrenheit, and additional compatible Ebola Virus Disease symptoms Patient denies exposure to infectious person. Patient denies travel to an Ebola-affected area in the 21 days before illness onset. Initial Sepsis Screen: Does the patient meet any 2 criteria? No. Patient's initial sepsis screen is negative. Does the patient have a suspected source of infection? No. Patient's initial sepsis screen is negative. Risk Assessment: Do you want to hurt yourself or someone else? Patient reports no desire to harm self or others. Onset of symptoms was February 18, 2021. 01:20 Method Of Arrival: Ambulatory rr5 01:20 Acuity: GINGER 3 rr5 Historical: - Allergies: 01:23 Sulfa; rr5 - Home Meds: 01:23 None [Active]; rr5 - PMHx: 01:23 staph infection; rr5 - PSHx: 01:23 None; rr5 - Immunization history:: Adult Immunizations up to date. - Social history:: Smoking status: unknown. - Family history:: not pertinent. Screenin:26 Abuse screen: Denies threats or abuse. Denies injuries from another. Nutritional rr5 screening: No deficits noted. Tuberculosis screening: No symptoms or risk factors identified. Fall Risk IV access (20 points). Total Mendoza Fall Scale indicates No Risk (0-24 pts). Assessment: 01:25 General: Appears in no apparent distress. uncomfortable, Behavior is calm, cooperative, rr5 appropriate for age, anxious. Pain: Complains of pain in anterior aspect of left upper chest Pain does not radiate. Pain currently is 6 out of 10 on a pain scale. Quality of pain is described as aching, Pain began suddenly, Is intermittent. Neuro: Level of Consciousness is awake, alert, obeys commands, Oriented to person, place, time, situation. Cardiovascular: Reports chest pain, Capillary refill < 3 seconds Patient's skin is warm and dry. Respiratory: Airway is patent Respiratory effort is even, unlabored, Respiratory pattern is regular, symmetrical. GI: No signs and/or symptoms were reported involving the gastrointestinal system. : No signs and/or symptoms were reported regarding the genitourinary system. EENT: No signs and/or symptoms were reported regarding the EENT system. Derm: Skin is intact, is healthy with good turgor, Skin temperature is warm. Musculoskeletal: Capillary refill < 3 seconds. 02:29 Reassessment: Patient and/or family updated on plan of care and expected duration. Pain ea level reassessed. Patient is alert, oriented x 3, equal unlabored respirations, skin warm/dry/pink. Discharge instruction given to patient verbalized the understanding of instruction. Vital Signs: 01:20 BP 151 / 99; Pulse 88; Resp 16; Temp 97.9; Pulse Ox 99% ; Weight 92.99 kg; Height 5 ft. rr5 9 in. (175.26 cm); Pain 6/10; 02:15 BP 140 / 86; Pulse 78; Resp 18; Pulse Ox 99% ; ea 01:20 Body Mass Index 30.27 (92.99 kg, 175.26 cm) rr5 ED Course: 00:42 Patient arrived in ED. es 01:15 Patient maintains SpO2 saturation greater than 95% on room air. ea 01:16 Arabella Muñoz MD is Attending Physician. ma2 01:20 Travis Mayberry, FER is Primary Nurse. rr5 01:20 Patient has correct armband on for positive identification. Bed in low position. Call rr5 light in reach. potline monitor on. Pulse ox on. NIBP on. 01:20 EKG done, by ED staff, reviewed by Arabella Muñoz MD. rr5 01:23 Triage completed. rr5 01:23 Arm band placed on right wrist. rr5 01:26 Inserted saline lock: 20 gauge in right antecubital area, using aseptic technique. rr5 Blood collected. 01:57 XRAY Chest (1 view) In Process Unspecified. EDMS 02:29 No provider procedures requiring assistance completed. IV discontinued, intact, ea bleeding controlled, No redness/swelling at site. Pressure dressing applied. Administered Medications: No medications were administered Outcome: 02:09 Discharge ordered by . esther 02:30 Discharged to home ambulatory. ea 02:30 Condition: stable 02:30 Discharge instructions given to patient, Instructed on discharge instructions, follow up and referral plans. Demonstrated understanding of instructions, follow-up care. 02:30 Patient left the ED. ea Signatures: Dispatcher [employer] EDTN Demetria Schaeffer Elena RN RN Arabella Bolton MD MD ma2 Roque, Raymond RN RN rr5
--- NOTE | 2021-02-18 02:10 | EDPHYS ---
Physician Documentation [facility] Name: Jonathan Calvin Age: 25 yrs Sex: Male : 1995 Arrival Date: 02/18/2021 Time: 00:42 Bed 6 Private MD: ED Physician Arabella Muñoz HPI: 02/18 02:07 This 25 yrs old Male presents to ER via Ambulatory with complaints of anxiety. ma2 02:07 Severity of pain: At its worst the pain was mild in the emergency department the pain ma2 is unchanged. The patient has not experienced similar symptoms in the past. had anxiety and chest pain that last for secods stapping, has no health issues, non smoker no family history of heart disease, . Historical: - Allergies: :23 Sulfa; rr5 - Home Meds: :23 None [Active]; rr5 - PMHx: :23 staph infection; rr5 - PSHx: 01:23 None; rr5 - Immunization history:: Adult Immunizations up to date. - Social history:: Smoking status: unknown. - Family history:: not pertinent. ROS: 02:07 Constitutional: Negative for fever, chills, and weight loss. ma2 02:07 All other systems are negative. Exam: 02:07 Constitutional: This is a well developed, well nourished patient who is awake, alert, ma2 and in no acute distress. Head/Face: Normocephalic, atraumatic. Eyes: Pupils equal round and reactive to light, extra-ocular motions intact. Lids and lashes normal. Conjunctiva and sclera are non-icteric and not injected. Cornea within normal limits. Periorbital areas with no swelling, redness, or edema. ENT: Nares patent. No nasal discharge, no septal abnormalities noted. Tympanic membranes are normal and external auditory canals are clear. Oropharynx with no redness, swelling, or masses, exudates, or evidence of obstruction, uvula midline. Mucous membranes moist. Neck: Trachea midline, no thyromegaly or masses palpated, and no cervical lymphadenopathy. Supple, full range of motion without nuchal rigidity, or vertebral point tenderness. No Meningismus. Chest/axilla: Normal chest wall appearance and motion. Nontender with no deformity. No lesions are appreciated. Cardiovascular: Regular rate and rhythm with a normal S1 and S2. No gallops, murmurs, or rubs. Normal PMI, no JVD. No pulse deficits. Respiratory: Lungs have equal breath sounds bilaterally, clear to auscultation and percussion. No rales, rhonchi or wheezes noted. No increased work of breathing, no retractions or nasal flaring. Abdomen/GI: Soft, non-tender, with normal bowel sounds. No distension or tympany. No guarding or rebound. No evidence of tenderness throughout. MS/ Extremity: Pulses equal, no cyanosis. Neurovascular intact. Full, normal range of motion. Neuro: Awake and alert, GCS 15, oriented to person, place, time, and situation. Cranial nerves II-XII grossly intact. Motor strength 5/5 in all extremities. Sensory grossly intact. Cerebellar exam normal. Normal gait. Vital Signs: 01:20 BP 151 / 99; Pulse 88; Resp 16; Temp 97.9; Pulse Ox 99% ; Weight 92.99 kg; Height 5 ft. rr5 9 in. (175.26 cm); Pain 6/10; 02:15 BP 140 / 86; Pulse 78; Resp 18; Pulse Ox 99% ; ea 01:20 Body Mass Index 30.27 (92.99 kg, 175.26 cm) rr5 MDM: 01:17 Patient medically screened. ma2 02:07 Differential diagnosis: anxiety, chest wall pain, gastritis, gastroesophageal reflux ma2 disease (GERD). Data reviewed: vital signs, nurses notes. Counseling: I had a detailed discussion with the patient and/or guardian regarding: the historical points, exam findings, and any diagnostic results supporting the discharge/admit diagnosis, the presence of at least one elevated blood pressure reading (>120/80) during this emergency department visit, the need for outpatient follow up, heart score not applicable, . 02/18 01:16 Order name: Basic Metabolic Panel; Complete Time: 02:07 02/18 01:16 Order name: CBC with Diff; Complete Time: 02:07 02/18 01:16 Order name: LFT's; Complete Time: 02:07 02/18 01:16 Order name: Magnesium; Complete Time: 02:02/18 01:16 Order name: NT PRO-BNP; Complete Time: 02:02/18 01:16 Order name: PT-INR; Complete Time: 02:02/18 01:16 Order name: Troponin (emerg Dept Use Only); Complete Time: 02:02/18 01:16 Order name: XRAY Chest (1 view) 02/18 01:16 Order name: EKG; Complete Time: 01:02/18 01:16 Order name: Cardiac monitoring; Complete Time: :02/18 01:16 Order name: EKG - Nurse/Tech; Complete Time: :02/18 01:16 Order name: IV Saline Lock; Complete Time: :02/18 01:16 Order name: Labs collected and sent; Complete Time: 02/18 01:16 Order name: O2 Per Protocol; Complete Time: 02/18 01:16 Order name: O2 Sat Monitoring; Complete Time: Administered Medications: No medications were administered Disposition: 02/18/21 02:09 Discharged to Home. Impression: Anxiety disorder, unspecified. - Condition is Stable. - Discharge Instructions: Generalized Anxiety Disorder. - Medication Reconciliation Form, Thank You Letter, Antibiotic Education, Prescription Opioid Use form. - Follow up: Private Physician; When: Tomorrow; Reason: Continuance of care. Signatures: Dispatcher [employer] Albertina Padron RN Arabella Harris ea, MD MD ma2 Travis Mayberry RN RN rr5 Corrections: (The following items were deleted from the chart) 02:30 02:09 02/18/2021 02:09 Discharged to Home. Impression: Anxiety disorder, unspecified. ea Condition is Stable. Forms are Medication Reconciliation Form, Thank You Letter, Antibiotic Education, Prescription Opioid Use. Follow up: Private Physician; When: Tomorrow; Reason: Continuance of care. ma2
[2021-02-18 02:43] VITALS: BP 151/99; TEMP 97.9; O2SAT 99
--- NOTE | 2021-02-18 08:38 | RAD REPORT ---
EXAM DESCRIPTION: RAD - Chest Single View - 02/18/2021 1:57 am CLINICAL HISTORY: CHEST PAIN Chest pain. COMPARISON: Chest Single View dated 11/18/2017; CHEST PA AND LAT 2 VIEW dated 10/17/2008 FINDINGS: Portable technique limits examination quality. The lungs are grossly clear. The heart is normal in size. No displaced fractures. IMPRESSION: No acute intrathoracic process suspected.
== END 2021-02-18 02:30 | disposition home or self-care (01) ==
LOC: ER 00:40
DX: F41.9 Anxiety disorder, unspecified (principal); Z88.2 Allergy status to sulfonamides
CPT/HCPCS: 36415; 71045; 80048; 80076; 83735; 83880; 84484; 85025; 85610; 93005; 99285

== ENCOUNTER 2022-02-17 18:00 | Emergency (ER) | payer SELFPAY ==
--- NOTE | 2022-02-17 19:33 | ER ---
Nurse's Notes [facility] Name: Jonathan Calvin Age: 26 yrs Sex: Male : 1995 Arrival Date: 02/17/2022 Time: 18:01 Bed Waiting Private MD: Diagnosis: ED Course: 02/17 18:01 Patient arrived in ED. mr 19:10 Patient's name was called from ER lobby. No response. vg1 Administered Medications: No medications were administered Outcome: 19:33 Patient left the ED. vg1 Signatures: Luly Calvert Victoria, RN RN vg1
== END 2022-02-17 19:33 | disposition left against medical advice (07) ==
LOC: ER 18:00
DX: Z20.89 Contact with and (suspected) exposure to other communicable diseases (principal)